=== PATIENT | male | born 1950 | race Caucasian/White ===

== ENCOUNTER 2022-10-02 09:46 | Emergency (ER) | payer MEDICARE ==
[~2022-10-02] VITALS: Ht 165.1 cm; Wt 83.2 kg
[2022-10-02 10:23] VITALS: BP 152/82
[2022-10-02] MEDS ORDERED: NIRM1TAB5 PO (11:37)
== END 2022-10-02 12:05 | disposition home or self-care (01) ==
LOC: ER 09:47
DX: U07.1 COVID-19 (principal); B34.9 Viral infection, unspecified
CPT/HCPCS: 87635; 99283; C9803

== ENCOUNTER 2023-03-25 09:58 | Emergency (ER) | payer MEDICARE ==
[~2023-03-25] VITALS: Ht 166.4 cm; Wt 83.0 kg
[~2023-03-25 09:58] MED LIST: NIRM1TAB5 PO
[2023-03-25 11:00] VITALS: BP 162/90; PULSE 68; RESP 18; TEMP 98.5; O2SAT 97
[2023-03-25] MEDS ORDERED: proparacaine 0.5% ophthalmic drops 15ml EACHEYE ONE (11:50)
[2023-03-25] MEDS ORDERED: MOXI3DRO25 LEFTEYE (12:54)
== END 2023-03-25 13:11 | disposition home or self-care (01) ==
LOC: ER 09:58
DX: S05.02XA Injury of conjunctiva and corneal abrasion without foreign body, left eye, initial encounter (principal); H10.9 Unspecified conjunctivitis; Z79.899 Other long term (current) drug therapy; X58.XXXA Exposure to other specified factors, initial encounter; Y93.89 Activity, other specified; Y92.89 Other specified places as the place of occurrence of the external cause; Y99.8 Other external cause status
CPT/HCPCS: 99283